=== PATIENT | male | born 1965 | race Hispanic/Latino ===

== ENCOUNTER 2019-01-06 06:08 | Observation (INO) | payer OTHER ==
--- NOTE | 2019-01-04 09:58 | Diagnostic Imaging Report ---
Chest, 2 views, 01/04/2019. History: Preop, cervical spine surgery. Comparison: None available. Findings: The cardiomediastinal silhouette and pulmonary vasculature are within normal limits. The lungs are clear without evidence of consolidation or pleural effusion. There are no acute osseous or soft tissue abnormalities. Impression: No acute cardiopulmonary abnormality. Signed by: Cyril Sanchez on 01/04/2019 9:55 AM
[2019-01-04 10:05] LABS: BASOPHILS % 0.4 % (0.0-1.0); EOSINOPHILS % 0.8 % (0.0-6.0); HEMATOCRIT 45.5 % (38.2-49.6); HEMOGLOBIN 15.2 g/dL (14.0-18.0); LYMPHOCYTES # (AUTO) 1.5 (1.0-3.2); LYMPHOCYTES % 27.8 % (18.0-39.1); MEAN CORPUSCULAR HEMOGLOBIN 30.6 pg (28-32); MEAN CORPUSCULAR HGB CONC 33.4 g/dL (31-35); MEAN CORPUSCULAR VOLUME 91.7 fL (81-99); MONOCYTES # (AUTO) 0.4 (0.2-0.8); MONOCYTES % 6.6 % (4.4-11.3); NEUTROPHILS # (AUTO) 3.4 (2.1-6.9); NEUTROPHILS % 64.2 % (38.7-80.0); PLATELET COUNT 231 x10e3/uL (140-360); RED BLOOD COUNT 4.96 x10e6/uL (4.3-5.7); RED CELL DISTRIBUTION WIDTH 12.2 % (11.7-14.4)
[2019-01-04 10:23] LABS: BLOOD UREA NITROGEN 12 mg/dL (7-26); BUN/CREATININE RATIO 14 (6-25); CALCIUM 9.9 mg/dL (8.4-10.2); CARBON DIOXIDE 32 mmol/L (22-29); CHLORIDE 101 mmol/L (98-107); CREATININE, SERUM 0.83 mg/dL (0.72-1.25); EST GLOMERULAR FILTRATION RATE > 60 ML/MIN (60-); GLUCOSE 81 mg/dL (74-118); SODIUM 139 mmol/L (136-145)
[2019-01-04 10:57] LABS: INR 0.89; PROTHROMBIN TIME 12.5 seconds (11.9-14.5)
[2019-01-04 11:22] LABS: PARTIAL THROMBOPLASTIN TIME 33.9 seconds (23.8-35.5)
[~2019-01-06] VITALS: Ht 182.9 cm; Wt 100.4 kg
[~2019-01-06 06:08] MED LIST: AMITRIPTYLINE H10 MG PO; CYCLOBENZAPRINE10 MG PO; DICYCLOMINE HCL20 MG PO; FINASTERIDE5 MG PO; LEVAQUIN500 MG PO; LUNESTA3 MG PO; LYRICA25 MG PO; NAPROXEN500 MG PO; NO MEDS; PROPRANOLOL HCL10 MG PO; VITAMIN PO; WELLBUTRIN SR100 MG PO; [UNRECOGNIZED DRUG - OTHER] PO; [UNRECOGNIZED DRUG - OTHER] PO
--- OUTSIDE RECORDS SUMMARY | 2019-01-06 06:47 | XMS REPORT ---
Author [facility] Address Unknown Phone Unavailable Care Team Providers Care Precipitate Washer Name Role Phone HUGH VIEYRA Unavailable Unavailable Komal CHANCE Unavailable Unavailable Payers Payer Name Policy Type Policy Number Effective Date Expiration Date Problems This patient has no known problems. Allergies, Adverse Reactions, Alerts Allergy Name Allergy Type Status Severity Reaction(s) Onset Date Inactive Date Treating Clinician Comments No Known Allergies DA Active U 2018-08-26 00:00:00 No Known Contrast Allergies DA Active U 2008-08-18 00:00:00 No Known Drug Allergies DA Active U 2008-08-18 00:00:00 No Known Food Allergies DA Active U 2008-08-18 00:00:00 No Known Other Allergies DA Active U 2008-08-18 00:00:00 No Known Drug Intolerances DA Active U 2008-08-17 00:00:00 Medications This patient has no known medications. Results Test Description Test Time Test Comments Text Results Atomic Results Result Comments CHEST 2 VIEWS 2019-01-04 09:54:00 [place] [address] Patient Name: OUSMANE DEAL JR MR #: [id number] : 1965 Age/Sex: 53/M Req #: [id number] Adm Physician: Ordered by: HUGH VIEYRA MD Report #: [id number] Location: OR Room/Bed: Procedure: [id number] DX/CHEST 2 VIEWS Exam Date: Exam Time: REPORT STATUS: Signed Chest, 2 views, 01/04/2019. History: Preop, cervical spine surgery. Comparison: None available. Findings: The cardiomediastinal silhouette and pulmonary vasculature are within normal limits. The lungs are clear without evidence of consolidation or pleural effusion. There are no acute osseous or soft tissue abnormalities. Impression: No acute cardiopulmonary abnormality. Signed by: Cyril Sanchez on 01/04/2019 9:55 AM Dictated By: CYRIL SANCHEZ MD 4 Transcribed By: NAT on 01/04/19954 COPY TO: HUGH VIEYRA MD - XR FLUORO FOR SPINE INJ 2018-08-27 10:41:00 Patient Name: OUSMANE DEAL JR Unit No: [id number] EXAMS: CPT CODE: [id number] XR FLUORO FOR SPINE INJ 72378 CERVICAL TRANSFORAMINAL INJECTION REFERRING PHYSICIAN: PREOPERATIVE DIAGNOSIS: Cervical radiculitis POSTOPERATIVE DIAGNOSIS: Cervical radiculopathy PROCEDURES PERFORMED: Fluoroscopically guided needle localization of the right C5, right C6, right C7 spinal nerves with transforaminal epidural steroid injection/injections. 2. Transforaminal epidurogram/epidurograms at right C5, right C6, right C7 FINDINGS: Poor filling all. Concordant provocation right C6 shoulder, right C7 arm. Pain relief-100%. ANTIBIOTICS:Cefazolin ESTIMATED BLOOD LOSS: Minimal ANESTHESIA: (TIVA ) Total intravenous anesthetic (patient intolerant to sedatives and hypnotics) COMPLICATIONS: None DETAILS OF PROCEDURE: After obtaining stable vital signs, informed consent and IV access, with no known contraindications to proceeding, the patient was taken to the fluoroscopy suite and placed in a supine position with all extremities padded and appropriate monitors placed. A sterile prep and drape was performed over the cervical spine. Using fluoroscopic visualization at each level the insertion site was marked for a paravertebral approach to the foramen. Using standard technique, a 27gauge needle was advanced to the base of the pedicle. In AP view, final positioning was obtained outside the 6 on a clock position on the pedicle. Then, 0.5 ml of Isovue-300 contrast was injected to produce the epidurograms. No paresthesias were elicited with needle insertion or injection and there were no signs of intravascular or intrathecal uptake. Then, 0.5 ml of 4% lidocaine was injected as a test dose with no signs of intravascular or intrathecal uptake. Next, 10 mg of Decadron was injected incrementally with frequent negative aspirations.Each subsequent cervical nerve root sleeve was done with the same technique and medications were used.There were no signs of intravascular or intrathecal uptake. The patient's vital signs remained stable. The patient was taken to the PACU in good condition. [facility] NAME: OUSMANE DAEL JR [address] [facility] PHYS: Matthew Gnozales MD [place], [place] [address] : 1965 AGE: 53 SEX: M LOC: KATHI PHONE #: [phone] EXAM DATE: 08/27/2018 STATUS: REG [facility] FAX #: [phone] RAD #: D/C DT PAGE 1 Signed Report (CONTINUED) Patient Name: OUSMANE DEAL JR Unit No: [id number] EXAMS: CPT CODE: [id number] XR FLUORO FOR SPINE INJ 57020 <Continued> at 1041 Reported and signed by: Matthew Pryor M.D. CC: Technologist: UGO CUETO. RT(R) Transcribed D/ (1041) [email or web address] [facility] NAME: OUSMANE DEAL [address] [facility] PHYS: Matthew Gonzales MD [place], [place] [address] : 1965 AGE: 53 SEX: M LOC: KATHI PHONE #: [phone] EXAM DATE: 08/27/2018 STATUS: REG [facility] FAX #: [phone] RAD #: D/C DT PAGE 2 Signed Report Patient Name: OUSMANE DEAL JR Unit No: [id number] EXAMS: CPT CODE: [id number] XR FLUORO FOR SPINE INJ 23863 <Continued> Orig Print D/T: S: 08/27/2018 (1044) [facility] NAME: OUSMANE DEAL JR [address] [facility] PHYS: STEVIE - DoctorMatthew MD [place], [place] [address] : 1965 AGE: 53 SEX: M LOC: Y.FANNY PHONE #: [phone] EXAM DATE: 08/27/2018 STATUS: REG [facility] FAX #: [phone] RAD #: D/C DT PAGE 3 Signed Report - XR C-SPINE 4-5 V 2018-08-02 12:31:00 Patient Name: OUSMANE DEAL JR Unit No: [id number] EXAMS: CPT CODE: [id number] XR C-SPINE 4-5 V 49699 4 view cervical spine with flexion and extension COMMENT: Moderate degeneration of the C5-6 and C6-7 disc with associated spondylosis. No abnormal motion seen on flexion or extension. Prevertebral soft tissues are within normal limits. at 1231 Reported and signed by: Hilad Hansen MD CC: John Frye M.D. Technologist: RT. Terry(R) Transcribed D/ (1231) [email or web address] [facility] NAME: OUSMANE DEAL JR [address] [facility] PHYS: John Chan MD : 1965 AGE: 53 SEX: M [place], [place] [address] LOC: Y.MRI PHONE #: [phone] EXAM DATE: 07/30/2018 STATUS: DEP CLI FAX #: [phone] RAD #: D/C DT PAGE 1 Signed Report Patient Name: OUSMANE DEAL JR Unit No: [id number] EXAMS: CPT CODE: [id number] XR C-SPINE 4-5 V 55254 <Continued> Orig Print D/T: S: 08/02/2018 (0538) [facility] NAME: OUSMANE DELA JR [address] [facility] PHYS: John Chan MD : 1965 AGE: 53 SEX: M [place], [place] [address] LOC: Y.MRI PHONE #: [phone] EXAM DATE: 07/30/2018 STATUS: DEP CLI FAX #: [phone] RAD #: D/C DT PAGE 2 Signed Report - XR L-SPINE W/BEND VIEW 2018-08-02 09:08:00 Patient Name: OUSMANE DEAL JR Unit No: [id number] EXAMS: CPT CODE: [id number] XR L-SPINE W/BEND VIEW 62957 MRI OF THE CERVICAL SPINE: DIAGNOSIS: 1. At C2-3, mild disc degeneration. No central canal stenosis. Mild foraminal stenosis. 2. At C3-4, disc desiccation. Mild central canal stenosis. Mild foraminal stenosis. 3. At C4-5, mild disc degeneration. Mild disc bulging flattens the ventral thecal sac. Moderate central canal stenosis. Moderate left foraminal and moderate right foraminal stenosis. 4. At C5- 6,moderate disc degeneration. 2 mm broad-based disc bulge flattens the ventral thecal sac. Moderate central canal stenosis. Moderate foraminal stenosis. 5. At C6-7, moderate disc degeneration. 2 mm disc bulge. Moderate central canal stenosis. Moderate right foraminal mild left foraminal stenosis. 6. At C7-T1, mild disc degeneration. No central canal or foraminal stenosis. COMMENT: COMPARISON: No prior exams available. Sagittal T1, T2 and STIR and axial T2 and gradient-echo sequences are obtained of the cervical spine. Cervical vertebrae are within no rmal limits in signal. The findings are as above. MRI OF THE LUMBAR SPINE: DIAGNOSIS: 1. At L1-2, there is no disc bulge or herniation. No central canal or foraminal stenosis. 2. At L2-3, no disc bulge or herniation. No central canal or foraminal stenosis. 3. At L3-4, disc desiccation. Mild central canal stenosis. Moderate facet arthropathy. Mild left foraminal stenosis. 4. At L4-5, moderate to marked disc degeneration. There is a 4 mm posterior central subligamentous disc herniation which flattens the ventral thecal sac. Moderate central canal stenosis. Mild bilateral [facility] NAME: OUSMANE DEAL JR [address] [facility] PHYS: John Chan MD : 1965 AGE: 53 SEX: M [place] [address] LOC: Y.MRI PHONE #: [phone] EXAM DATE: 07/30/2018 STATUS: DEP CLI FAX #: [phone] RAD #: D/C DT PAGE 1 Signed Report (CONTINUED) Patient Name: OUSMANE DEAL JR Unit No: [id number] EXAMS: CPT CODE: [id number] XR L-SPINE W/BEND VIEW 29442 <Continued> facet arthropathy. Moderate foraminal stenosis. 5. At L5- S1, moderate disc degeneration. There is 2 mm of retrolisthesis of L5 on S1. There is a 5 mm caudally migrated posterior central disc herniation. This may slightly impinge the bilateral S1 nerve roots. Mild central wendi l stenosis. Moderate right foraminal mild left foraminal stenosis. COMMENT: COMPARISON: No prior exams available. Sagittal T1, T2 and STIR and axial T1 and T2-weighted sequences are obtained of the lumbar spine. The lumbar vertebrae are within normal limits in signal. The findings are as above. The conus is in the expected location. 7 VIEW LUMBAR SPINE WITH FLEXION AND EXTENSION COMMENT: Degeneration of the L4-5 and L5-S1 disc. Pedicles and transverse processes are intact. SI joints are within normal limits. No abnormal motion seen on flexion or extension. at 0908 Reported and signed by: Hilda Hansen MD CC: John Frye M.D. Technologist: RT Terry.(R) Transcribed D/ (0908) JesusGVG [facility] NAME: OUSMANE DEAL JR [address] [facility] PHYS: John Chan MD : 1965 AGE: 53 SEX: M [place], [place] [address] LOC: Y.MRI PHONE #: [phone] EXAM DATE: 07/30/2018 STATUS: DEP CLI FAX #: [phone] RAD #: D/C DT PAGE 2 Signed Report Patient Name: OUSMANE DEAL JR Unit No: [id number] EXAMS: CPT CODE: [id number] XR L-SPINE W/BEND VIEW 78052 <Continued> Orig Print D/T: S: 08/02/2018 (0911) [facility] NAME: OUSMANE DEAL JR [address] [facility] PHYS: John Chan MD : 1965 AGE: 53 SEX: M [place], [place] [address] LOC: Y.MRI PHONE #: [phone] EXAM DATE: 07/30/2018 STATUS: DEP CLI FAX #: [phone] RAD #: D/C DT PAGE 3 Signed Report - MRI L-SPINE W/O CONT 2018-08-02 09:08:00 Patient Name: OUSMANE DEAL JR Unit No: [id number] EXAMS: CPT CODE: [id number] MRI L-SPINE W/O CONT 90514 MRI OF THE CERVICAL SPINE: DIAGNOSIS: 1. At C2-3, mild disc degeneration. No central canal stenosis. Mild foraminal stenosis. 2. At C3-4, disc desiccation. Mild central canal stenosis. Mild foraminal stenosis. 3. At C4-5, mild disc degeneration. Mild disc bulging flattens the ventral thecal sac. Moderate central canal stenosis. Moderate left foraminal and moderate right foraminal stenosis. 4. At C5- 6,moderate disc degeneration. 2 mm broad-based disc bulge flattens the ventral thecal sac. Moderate central canal stenosis. Moderate foraminal stenosis. 5. At C6-7, moderate disc degeneration. 2 mm disc bulge. Moderate central canal stenosis. Moderate right foraminal mild left foraminal stenosis. 6. At C7-T1, mild disc degeneration. No central canal or foraminal stenosis. COMMENT: COMPARISON: No prior exams available. Sagittal T1, T2 and STIR and axial T2 and gradient-echo sequences are obtained of the cervical spine. Cervical vertebrae are within no rmal limits in signal. The findings are as above. MRI OF THE LUMBAR SPINE: DIAGNOSIS: 1. At L1-2, there is no disc bulge or herniation. No central canal or foraminal stenosis. 2. At L2-3, no disc bulge or herniation. No central canal or foraminal stenosis. 3. At L3-4, disc desiccation. Mild central canal stenosis. Moderate facet arthropathy. Mild left foraminal stenosis. 4. At L4-5, moderate to marked disc degeneration. There is a 4 mm posterior central subligamentous disc herniation which flattens the ventral thecal sac. Moderate central canal stenosis. Mild bilateral [facility] NAME: OUSMANE DEAL JR [address] [facility] PHYS: John Chan MD : 1965 AGE: 53 SEX: M [place], [place] [address] LOC: Y.MRI PHONE #: [phone] EXAM DATE: 07/30/2018 STATUS: DEP CLI FAX #: [phone] RAD #: D/C DT PAGE 1 Signed Report (CONTINUED) Patient Name: OUSMANE DEAL JR Unit No: [id number] EXAMS: CPT CODE: [id number] MRI L-SPINE W/O CONT 96787 <Continued> facet arthropathy. Moderate foraminal stenosis. 5. At L5- S1, moderate disc degeneration. There is 2 mm of retrolisthesis of L5 on S1. There is a 5 mm caudally migrated posterior central disc herniation. This may slightly impinge the bilateral S1 nerve roots. Mild central wendi l stenosis. Moderate right foraminal mild left foraminal stenosis. COMMENT: COMPARISON: No prior exams available. Sagittal T1, T2 and STIR and axial T1 and T2-weighted sequences are obtained of the lumbar spine. The lumbar vertebrae are within normal limits in signal. The findings are as above. The conus is in the expected location. 7 VIEW LUMBAR SPINE WITH FLEXION AND EXTENSION COMMENT: Degeneration of the L4-5 and L5-S1 disc. Pedicles and transverse processes are intact. SI joints are within normal limits. No abnormal motion seen on flexion or extension. at 0908 Reported and signed by: Hilda Hansen MD CC: John Frye M.D. Technologist: Estiven Patel(R) Transcribed D/ (09) [email or web address] [facility] NAME: OUSMANE DEAL JR [address] [facility] PHYS: John Chan MD : 1965 AGE: 53 SEX: M [place] [address] LOC: Y.MRI PHONE #: [phone] EXAM DATE: 07/30/2018 STATUS: DEP CLI FAX #: [phone] RAD #: D/C DT PAGE 2 Signed Report Patient Name: OUSMANE DEAL JR Unit No: [id number] EXAMS: CPT CODE: [id number] MRI L-SPINE W/O CONT 65850 <Continued> Orig Print D/T: S: 08/02/2018 (09) [facility] NAME: OUSMANE DEAL JR [address] [facility] PHYS: John Chan MD : 1965 AGE: 53 SEX: M [place] [address] LOC: Y.MRI PHONE #: [phone] EXAM DATE: 07/30/2018 STATUS: DEP CLI FAX #: [phone] RAD #: D/C DT PAGE 3 Signed Report - MRI C-SPINE W/O CONT 2018-08-02 09:08:00 Patient Name: OUSMANE DEAL JR Unit No: [id number] EXAMS: CPT CODE: [id number] MRI C-SPINE W/O CONT 41453 MRI OF THE CERVICAL SPINE: DIAGNOSIS: 1. At C2-3, mild disc degeneration. No central canal stenosis. Mild foraminal stenosis. 2. At C3-4, disc desiccation. Mild central canal stenosis. Mild foraminal stenosis. 3. At C4-5, mild disc degeneration. Mild disc bulging flattens the ventral thecal sac. Moderate central canal stenosis. Moderate left foraminal and moderate right foraminal stenosis. 4. At C5- 6,moderate disc degeneration. 2 mm broad-based disc bulge flattens the ventral thecal sac. Moderate central canal stenosis. Moderate foraminal stenosis. 5. At C6-7, moderate disc degeneration. 2 mm disc bulge. Moderate central canal stenosis. Moderate right foraminal mild left foraminal stenosis. 6. At C7-T1, mild disc degeneration. No central canal or foraminal stenosis. COMMENT: COMPARISON: No prior exams available. Sagittal T1, T2 and STIR and axial T2 and gradient-echo sequences are obtained of the cervical spine. Cervical vertebrae are within no rmal limits in signal. The findings are as above. MRI OF THE LUMBAR SPINE: DIAGNOSIS: 1. At L1-2, there is no disc bulge or herniation. No central canal or foraminal stenosis. 2. At L2-3, no disc bulge or herniation. No central canal or foraminal stenosis. 3. At L3-4, disc desiccation. Mild central canal stenosis. Moderate facet arthropathy. Mild left foraminal stenosis. 4. At L4-5, moderate to marked disc degeneration. There is a 4 mm posterior central subligamentous disc herniation which flattens the ventral thecal sac. Moderate central canal stenosis. Mild bilateral [facility] NAME: OUSMANE DEAL JR [address] [facility] PHYS: John Chan MD : 1965 AGE: 53 SEX: M [place], [place] [address] LOC: Y.MRI PHONE #: [phone] EXAM DATE: 07/30/2018 STATUS: DEP CLI FAX #: [phone] RAD #: D/C DT PAGE 1 Signed Report (CONTINUED) Patient Name: OUSMANE DEAL JR Unit No: [id number] EXAMS: CPT CODE: [id number] MRI C-SPINE W/O CONT 39843 <Continued> facet arthropathy. Moderate foraminal stenosis. 5. At L5- S1, moderate disc degeneration. There is 2 mm of retrolisthesis of L5 on S1. There is a 5 mm caudally migrated posterior central disc herniation. This may slightly impinge the bilateral S1 nerve roots. Mild central wendi l stenosis. Moderate right foraminal mild left foraminal stenosis. COMMENT: COMPARISON: No prior exams available. Sagittal T1, T2 and STIR and axial T1 and T2-weighted sequences are obtained of the lumbar spine. The lumbar vertebrae are within normal limits in signal. The findings are as above. The conus is in the expected location. 7 VIEW LUMBAR SPINE WITH FLEXION AND EXTENSION COMMENT: Degeneration of the L4-5 and L5-S1 disc. Pedicles and transverse processes are intact. SI joints are within normal limits. No abnormal motion seen on flexion or extension. at 0908 Reported and signed by: Hilda Hansen MD CC: John Frye M.D. Technologist: Estiven Patel(R) Transcribed D/ (0908) SandraG [facility] NAME: OUSMANE DEAL JR [address] [facility] PHYS: John Chan MD : 1965 AGE: 53 SEX: M [place] [address] LOC: Y.MRI PHONE #: [phone] EXAM DATE: 07/30/2018 STATUS: DEP CLI FAX #: [phone] RAD #: D/C DT PAGE 2 Signed Report Patient Name: OUSMANE DEAL JR Unit No: [id number] EXAMS: CPT CODE: [id number] MRI C-SPINE W/O CONT 50198 <Continued> Orig Print D/T: S: 08/02/2018 (0911) [facility] NAME: OUSMANE DEAL JR [address] [facility] PHYS: John Chan MD : 1965 AGE: 53 SEX: M [place] [address] LOC: Y.MRI PHONE #: [phone] EXAM DATE: 07/30/2018 STATUS: DEP CLI FAX #: [phone] RAD #: D/C DT PAGE [address] ABDOMEN/PELVIS W [place] [address] Patient Name: OUSMANE DEAL II MR #: [id number] : 1965 Age/Sex: 51/M Req #: [id number] Adm Physician: Ordered by: AMPARO LOMELI MD Report #: [id number] Location: ER Room/Bed: Procedure: [id number] CT/CT ABDOMEN/PELVIS W Exam Date: 02/23/17 Exam Time: 0142 REPORT STATUS: Signed EXAM: CT ABDOMEN AND PELVIS with IV CONTRAST DATE: 02/23/2017 12:10 AM Time stamp on Exam: 0145 hours INDICATION: Epigastric pain COMPARISON: None TECHNIQUE: The abdomen and pelvis were scanned using a multidetector helical scanner. Coronal and sagittal reformations were obtained. Routine protocol performed. IV Contrast: 100 cc Isovue-370 Oral Contrast: Water CTDIvol has been reviewed. It is below the limits set by the Radiation Protocol Committee (RPC). FINDINGS: LOWER THORAX: Bibasilar atelectasis. LIVER: No masses BILIARY: Gallbladder hydrops. No ductal dilation. Normal common bile duct size. SPLEEN: No masses PANCREAS: No masses ADRENALS: No nodules KIDNEYS: Symmetric perfusion. No enhancing masses. No hydronephrosis. Subcentimeter bilateral renal cysts. GI TRACT: No distention, wall thickening or evidence of obstruction. Nonspecific narrowing of the body of the stomach. Normal appendix. VESSELS: No abdominal aortic aneurysm. Incidental left retrocaval renal vein. PERITONEUM/RETROPERITONEUM: No free air or fluid LYMPH NODES: No lymphadenopathy REPRODUCTIVE ORGANS: The prostate is enlarged to 5.2 cm in transverse diameter. BLADDER: Unremarkable SOFT TISSUES: Unremarkable BONES: Nonspecific heterogeneity of the bones, likely due to osteopenia. IMPRESSION: Nonspecific gallbladder hydrops. No wall thickening or inflammation by CT. Narrowed lumen of the body of the stomach. This is a nonspecific finding by CT and could be secondary to peristalsis. Signed by: Dr. Belén Chiang M.D. on 02/23/2017 2:10 AM Dictated By: BELÉN CHIANG MD 9 Transcribed By: NAT on 02/23/17209 COPY TO: AMPARO LOMELI MD US GALLBLADDER [facility] [address] [place] [address] Patient Name: OUSMANE DEAL II MR #: [id number] : 1965 Age/Sex: 51/M Req #: [id number] Adm Physician: JANAY CHANCE MD Ordered by: JANAY CHANCE MD Report #: [id number] Location: MED/SURG Room/Bed: [facility] Procedure: [id number] US/US GALLBLADDER Exam Date: Exam Time: REPORT STATUS: Signed PROCEDURE: US GALLBLADDER COMPARISON: None. INDICATIONS: Cholecystitis TECHNIQUE: Craven-scale and color doppler transverse and longitudinal images of the right upper quadrant of the abdomen were obtained. FINDINGS: Liver: Measures 12.8 cm in right mid- clavicular line. Normal echogenicity. No masses. Main portal vein: Measures 1.3 cm with normal forward flow. Gallbladder: Enlarged gallbladder with a large nonmobile stone in the neck. No wall thickening or fluid around the gallbladder. Common Bile Duct: Measures 0.5 cm Sonographic Zavaleta's sign: Negative Right kidney: Measures 12.4 x 5.7 x 6.5 cm. Normal echogenicity. No solid masses or hydronephrosis. There is a 1.2 cm lower pole exophytic renal cyst. Possible upper pole nonobstructing stone. Pancreas: Not optimally visualized. Inferior vena cava: Patent Aorta: Within normal limits Ascites: None in the right upper quadrant of the abdomen. CONCLUSION: Enlarged gallbladder with a large nonmobile stone within the neck of the gallbladder. Catarino Espinal D.O. Dictated by: Catarino Espinal D.O. on 02/23/2017 at 15:24 Electronically approved by: Catarino Espinal D.O. on 02/23/2017 at 15:24 Dictated By: CATARINO ESPINAL DO 1524 Transcribed By: PHILIPPE on 02/23/17 1524 COPY TO: JANAY CHANCE MD
[2019-01-06] MEDS ORDERED: ACETAMINOPHEN 1000 MG/100 ML 100 ML IV ONE (07:17)
[2019-01-06] MEDS ORDERED: LIDOCAINE HCL (LTA) 4 ML SOLN ONE ×2 (07:17→09:18)
[2019-01-06] MEDS ORDERED: IBUPROFEN 800MG/ 250ML 250 ML IV ONE (07:17)
[2019-01-06] MEDS ORDERED: CEFAZOLIN SOD 1 GM/NS 50ML 100 ML IV ONE (07:28)
[2019-01-06] MEDS ORDERED: ACETAMINOPHEN 325 MG TAB PO PRN (11:15)
[2019-01-06] MEDS ORDERED: CARISOPRODOL 350 MG TAB PO PRN (11:15)
[2019-01-06] MEDS ORDERED: CEPACOL SORE THROAT LOZENGES PO PRN (11:15)
[2019-01-06] MEDS ORDERED: HYDROMORPHONE 2MG/ML 2 MG/ML ML IV PRN (11:15)
[2019-01-06] MEDS ORDERED: PROMETHAZINE HCL (IM) 25 MG/ML VIAL IM PRN (11:15)
[2019-01-06] MEDS ORDERED: MORPHINE SULFATE 5 MG/ML VIAL IM PRN (11:15)
[2019-01-06] MEDS ORDERED: ONDANSETRON HCL INJ 2MG/ML 2ML 2 MG/ML VIAL IV PRN (11:15)
[2019-01-06] MEDS ORDERED: MAGNESIUM/ALUMINUM/SIMETHICONE 30 ML UDC PO PRN (11:15)
[2019-01-06] MEDS ORDERED: FENTANYL CITRATE/PF 100MCG/2 ML INJ ONE ×2 (11:17→19:35)
[2019-01-06 12:13] VITALS: BP 142/86
[2019-01-06 12:34] VITALS: BP 142/86
[2019-01-06 12:40] VITALS: BP 142/86
[2019-01-06] MEDS: LACTATED RINGER'S 1,000 ML IV SCH ×2 (12:58→21:53)
--- NOTE | 2019-01-06 13:15 | Operative Report ---
DATE OF PROCEDURE: 01/06/2019 SURGEON: Ivan Davenport MD PREOPERATIVE DIAGNOSIS: C5-C6 and C6-C7 spondylosis with radiculopathy, M50.120. POSTOPERATIVE DIAGNOSIS: C5-C6 and C6-C7 spondylosis with radiculopathy, M50.120. PROCEDURES: 1. C5-C6 anterior cervical diskectomy and microsurgical osteophyte resection and allograft fusion, 58625. 2. C6-C7 anterior cervical diskectomy and microsurgical osteophyte resection and allograft fusion, 59733. 3. Preparation of tricortical iliac crest allograft, [id number]. 4. C5-C6 and C6-C7 anterior cervical plating with Synthes CSLP plate, [id number]. ANESTHESIA: General. INDICATIONS: The patient is a 53-year-old man, who presents with C5-C6 and C6-C7 spondylosis and foraminal stenosis, and radiculopathy, was taken to the operating room for two-level anterior cervical decompression and fusion. PROCEDURE IN DETAIL: After induction of general anesthesia, the patient was placed on the operating table in supine position. The right side of neck was prepped and draped in sterile fashion. The fluoroscopic C-arm was positioned in cross-table lateral orientation. A transverse incision was created. The right side of neck superimposed on the C6 vertebral body as determined by fluoroscopy. The platysma was divided in line with the incision. A subplatysmal dissection was carried out and avascular plane of dissection was developed medially. Sternocleidomastoid muscle was followed medial to the carotid sheath to the anterior border of the cervical spine. The deep cervical fascia was opened. The esophagus was retracted to the left. The attachments of longus colli muscles to the anterolateral aspects of vertebral bodies of C5, C6, and C7 were divided. The anterior longitudinal ligament was resected. [place] posts were inserted into C5 and C7. The [place] distractor was used to distract both disk spaces simultaneously. The anterior annuli of disks were incised with a #11 blade. The contents of both disks were thoroughly evacuated with angled curettes and pituitary rongeurs. The posterior osteophytes were meticulously drilled with a 2 mm cutting chrissy on a high-speed drill until they were completely removed. The posterior annulus of the disk, chronically herniated disk material, and the posterior longitudinal ligament were resected layer by layer until the dura was fully exposed and decompressed. The medial aspects of the uncinate processes were resected bilaterally to further expose any compressed origins of the corresponding nerve roots. After satisfactory decompression had been achieved, the endplates were prepared for fusion. Two pieces of tricortical iliac crest allograft were cut to size and shapes of the disk spaces, and were inserted into disk spaces under distraction and fluoroscopic guidance. The distraction was released and distraction posts were removed. A Synthes CSLP variable type anterior cervical plate was selected and affixed to the vertebral bodies of C5, C6 and C7 with three pairs of 14 x 4.35 mm screws. All screw holes were drilled and tapped on the lateral fluoroscopic guidance. All screws were locked with the appropriate locking screws. An excellent construct was obtained. The wound was copiously irrigated with bacitracin solution. Meticulous hemostasis was secured. Retractor was removed. The platysma was closed with 3-0 Vicryl sutures. The skin was closed with 4-0 Vicryl sutures in subcuticular fashion. Steri-Strips and dressing were applied. The patient was awakened, extubated, and taken to Postanesthesia Care Unit in stable condition. No intraoperative complications were encountered. Estimated blood loss was 30 mL. Ivan Davenport MD PP/ARMAAN /[id number]
[2019-01-06 16:19] VITALS: BP 135/82
[2019-01-06] MEDS: CEFAZOLIN SOD 1 GM/NS 50ML 50 ML IV SCH (17:40)
[2019-01-06] MEDS: OXYCODONE/ACETAMINOPHEN 5-325 1 EACH TABLET PO PRN (18:15)
[2019-01-06] MEDS ORDERED: NEOSTIGMINE 5 MG/5ML SYR ONE (19:11)
[2019-01-06] MEDS ORDERED: ROCURONIUM BROMIDE 10 MG/ML 5ML VIAL ONE (19:11)
[2019-01-06] MEDS ORDERED: SEVOFLURANE INHAL SOLN 250 ML PEN BTL ONE (19:11)
[2019-01-06] MEDS ORDERED: DEXAMETHASONE SOD PHOS INJ 4 MG/ML VIAL ONE (19:11)
[2019-01-06] MEDS ORDERED: LIDOCAINE HCL 2% JELLY 5 ML TUBE ONE (19:11)
[2019-01-06] MEDS ORDERED: LIDOCAINE HCL 2% LOCAL INJ 5 ML SDV VIAL INJ ONE (19:11)
[2019-01-06] MEDS ORDERED: ONDANSETRON HCL INJ 2MG/ML 2ML 2 MG/ML VIAL ONE (19:11)
[2019-01-06] MEDS ORDERED: PROPOFOL IV EMULSION 10 MG/ML 20 ML VIAL ONE (19:11)
[2019-01-06] MEDS ORDERED: GLYCOPYRROLATE INJ 1MG/ 5 ML SYR ONE (19:11)
[2019-01-06] MEDS ORDERED: MIDAZOLAM HCL 2 MG/2 ML VIAL ONE (19:35)
[2019-01-06 20:00] VITALS: BP 141/83
[2019-01-06] MEDS ORDERED: ESZOPICLONE PO SCH (21:00)
[2019-01-06] MEDS ORDERED: PREGABALIN 75 MG CAP PO SCH (21:00)
[2019-01-06] MEDS ORDERED: CYCLOBENZAPRINE HCL 10 MG TAB PO SCH (21:00)
[2019-01-06] MEDS ORDERED: ZOLPIDEM TARTRATE 5 MG TAB PO PRN (21:00)
[2019-01-06] MEDS ORDERED: PREGABALIN 25 MG CAP PO SCH (21:00)
[2019-01-07] VITALS: BP 133/85
[2019-01-07] MEDS: CEFAZOLIN SOD 1 GM/NS 50ML 50 ML IV SCH ×2 (00:09→08:00)
[2019-01-07 04:00] VITALS: BP 142/83
[2019-01-07] MEDS: OXYCODONE/ACETAMINOPHEN 5-325 1 EACH TABLET PO PRN (04:37)
--- NOTE | 2019-01-07 06:40 | NUR ---
rounded with night manager nurse, patient aware of change and in no distress, call zhong within reach and bed in lowest position.
--- NOTE | 2019-01-07 07:22 | NUR ---
Report given to ESME Strong. Pt resting in bed, call light is in reach.
[2019-01-07 08:00] VITALS: BP 129/84
[2019-01-07 08:21] VITALS: BP 129/84
[2019-01-07] MEDS ORDERED: NORCO 7.5-3251 EACH PO (08:53)
[2019-01-07] MEDS ORDERED: FINASTERIDE 5 MG TAB PO SCH (09:00)
--- NOTE | 2019-01-07 09:15 | NUR ---
patient alert and oriented with at bedside. Patient discharge instructions given at this time, both verbalized understanding. IV discontinued, catheter in tact and small dressing applied. patient to be wheeled out to personal auto for to drive home.
== END 2019-01-07 09:20 | disposition home or self-care (01) ==
LOC: OR 06:08 → IMCU 11:03
PROVIDERS: ADMIT Neurological Surgery; ATTEND Neurological Surgery
DX: M50.122 Cervical disc disorder at C5-C6 level with radiculopathy (principal); M47.22 Other spondylosis with radiculopathy, cervical region; M48.02 Spinal stenosis, cervical region; Z01.810 Encounter for preprocedural cardiovascular examination; Z01.812 Encounter for preprocedural laboratory examination; Z01.811 Encounter for preprocedural respiratory examination; Z88.8 Allergy status to other drugs, medicaments and biological substances; G47.33 Obstructive sleep apnea (adult) (pediatric)
CPT/HCPCS: 20931; 22551; 22552; 22845; 36415; 71046; 80048; 85025; 85610; 85730; 86850; 86900; 88304; 93005; 96360; 96361; C1713 ×4; C1763; G0378 ×2; J0131; J0690 ×2; J1100; J1170 ×2; J2001 ×2; J2250; J2405; J2550; J2704; J3010; J3490; J7121; 77003

== ENCOUNTER → 2019-02-03 | Outpatient (CLI) | payer OTHER ==
[~2019-02-03] MED LIST changes: +NORCO 7.5-3251 EACH PO
--- NOTE | 2019-02-03 13:57 | Diagnostic Imaging Report ---
Cervical spine, 4 views. History: Cervical fusion. Discussion: The cervical spine is visualized on the lateral view from C1 through the top of C7. Anterior plate and screws are present from C5 through C7 in anatomic alignment. Flexion and extension views demonstrates no evidence of subluxation. There is no evidence of fracture, subluxation, or posterior splaying. Mild disc space narrowing with anterior calcified is present at C4-C5. The prevertebral soft tissues are within normal limits. IMPRESSION: Status post C5-C7 anterior fusion in anatomic alignment. No evidence of instability on flexion and extension views. Signed by: Cyril Sanchez on 02/03/2019 1:54 PM
== END ==
LOC: RAD 12:20
PROVIDERS: ATTEND Neurological Surgery
DX: M50.20 Other cervical disc displacement, unspecified cervical region (principal); M43.22 Fusion of spine, cervical region
CPT/HCPCS: 72050

== ENCOUNTER 2019-02-10 09:00 | Outpatient (RCR) | payer OTHER | END 2019-02-14 | LOC: PT 09:00 | PROVIDERS: ATTEND Neurological Surgery | DX: M50.120 Mid-cervical disc disorder, unspecified level (principal) ==

== ENCOUNTER 2019-03-10 15:47 | Outpatient (RCR) | payer OTHER | END 2019-03-17 | LOC: PT 15:47 | PROVIDERS: ATTEND Neurological Surgery | DX: M50.120 Mid-cervical disc disorder, unspecified level (principal) ==